=== PATIENT | female | born 1940 | race Hispanic/Latino ===

== ENCOUNTER 2016-11-14 14:35 | Emergency (ER) | payer MEDICARE ==
[2016-11-14] MEDS ORDERED: Triamcinolone 40 MG/ML VIAL ONE (15:54)
== END 2016-11-14 16:38 | disposition home or self-care (01) ==
LOC: MADERS 14:35
DX: L25.9 Unspecified contact dermatitis, unspecified cause (principal); E03.9 Hypothyroidism, unspecified; E78.5 Hyperlipidemia, unspecified; I10 Essential (primary) hypertension; Z79.2 Long term (current) use of antibiotics; Z79.899 Other long term (current) drug therapy
CPT/HCPCS: 96372; J1040; J3301

== ENCOUNTER 2023-12-06 11:44 | Emergency (ER) | payer MEDICARE ==
[2023-12-06] MEDS ORDERED: Lidocaine 4% Patch ONE (12:11)
== END 2023-12-06 13:06 | disposition home or self-care (01) ==
LOC: MADERS 11:44
DX: S20.212A Contusion of left front wall of thorax, initial encounter (principal); E03.9 Hypothyroidism, unspecified; E78.5 Hyperlipidemia, unspecified; I10 Essential (primary) hypertension; Z79.899 Other long term (current) drug therapy; W01.0XXA Fall on same level from slipping, tripping and stumbling without subsequent striking against object, initial encounter